=== PATIENT | female | born 1975 | race Caucasian/White ===

== ENCOUNTER 2020-06-21 19:54 | Emergency (ER) | payer OTHER ==
[~2020-06-21 19:54] MED LIST: BACTRIM DS TAB1 EACH PO; DICYCLOMINE HCL20 MG PO; METRONIDAZOLE500 MG PO; NEURONTIN300 MG PO; PHENERGAN25 M1 PO
[2020-06-21 21:24] LABS: AMPHETAMINES NEGATIVE (NEGATIVE); BARBITURATES NEGATIVE (NEGATIVE); ECSTASY (MDMA) POSITIVE (NEGATIVE); MARIJUANA (THC) POSITIVE (NEGATIVE); METHADONE NEGATIVE (NEGATIVE); OPIATES POSITIVE (NEGATIVE); OXYCODONE NEGATIVE (NEGATIVE)
[2020-06-21 21:28] LABS: BILIRUBIN NEGATIVE (NEGATIVE); BLOOD NEGATIVE Ery/uL (NEGATIVE); CLARITY HAZY (CLEAR); COLOR YELLOW (YELLOW); GLUCOSE (U) NORMAL (NORMAL); LEUKOCYTES NEGATIVE Leu/uL (NEGATIVE); NITRITE POSITIVE (NEGATIVE); PROTEIN NEGATIVE (NEGATIVE); UROBILINOGEN 0.2 mg/dL (0.2-1.0)
[2020-06-21 21:36] LABS: BACTERIA 4+; SQUAMOUS EPITHELIAL CELLS RARE
[2020-06-21 23:04] LABS: BASOPHIL 0.6 % (0-2); EOSINOPHIL 2.1 % (0-5); HCT 41.6 % (37.0-47.0); HGB 13.7 g/dl (12.5-16.0); LYMPHOCYTE 37.3 % (15-48); MCH 32.1 pg (25.0-31.0); MCHC 32.9 g/dL (32.0-36.0); MCV 97.4 fL (78.0-100.0); MONOCYTE 9.4 % (0-12); MPV 9.4 fL (6.0-9.5); NEUTROPHIL 49.8 % (41-80); NRBC 0; PLT 292 K/uL (150-400); RBC 4.27 M/uL (4.20-5.40); RDW 12.4 % (11.5-14.0); WBC 11.2 K/uL (4.0-10.5)
[2020-06-21 23:26] LABS: ALBUMIN 3.4 g/dL (3.4-5.0); BILIRUBIN - TOTAL 0.4 mg/dL (0.2-1.0); BUN/CREAT RATIO (CALC) 14.8 RATIO; CREATININE 0.88 mg/dL (0.51-0.95); GLOBULIN (CALCULATION) 3.2 g/dL; POTASSIUM 3.9 mmol/L (3.5-5.1); TOTAL PROTEIN 6.6 g/dL (6.4-8.2)
[2020-06-22] MEDS ORDERED: VIBRAMYCIN100 MG PO (01:38)
[2020-06-22] MEDS ORDERED: BENTYL10 MG PO (01:38)
[2020-06-22] MEDS ORDERED: ZOFRAN4 M1 PO (01:38)
[2020-06-24 00:09] LABS: CHLAMYDIA TRACHOMATIS, NAA Negative (Negative); NEISSERIA GONORRHOEAE, NAA Negative (Negative)
== END 2020-06-22 01:56 | disposition home or self-care (01) ==
LOC: FER 19:54
PROVIDERS: Emergency Medicine
DX: N39.0 Urinary tract infection, site not specified (principal); Z88.8 Allergy status to other drugs, medicaments and biological substances; Z88.5 Allergy status to narcotic agent
CPT/HCPCS: 36415; 80053; 80305; 81001; 85025; 87076; 87088; 87186; 87491; 87591; J0696; J1885; J2405; Q9967

== ENCOUNTER 2020-10-11 00:02 | Emergency (ER) | payer MEDICAID ==
[~2020-10-11 00:02] MED LIST changes: +BENTYL10 MG PO; +VIBRAMYCIN100 MG PO; +ZOFRAN4 M1 PO
[2020-10-11 01:05] LABS: BASOPHIL 0.7 % (0-2); EOSINOPHIL 1.3 % (0-5); HGB 13.4 g/dl (12.5-16.0); LYMPHOCYTE 33.5 % (15-48); MCHC 33.5 g/dL (32.0-36.0); MCV 95.5 fL (78.0-100.0); MONOCYTE 8.7 % (0-12); MPV 8.6 fL (6.0-9.5); NEUTROPHIL 55.2 % (41-80); NRBC 0; PLT 329 K/uL (150-400); RBC 4.19 M/uL (4.20-5.40); RDW 12.6 % (11.5-14.0); WBC 12.1 K/uL (4.0-10.5)
[2020-10-11 01:09] LABS: INR 1.04 (0.9-1.2); PROTHROMBIN TIME 12.9 SECONDS (11.4-13.6)
[2020-10-11 01:10] LABS: PTT 33.7 SECONDS (22.2-34.7)
[2020-10-11 01:11] LABS: D-DIMER 0.41 ug/mLFEU (0.00-0.41)
[2020-10-11 01:31] LABS: BILIRUBIN NEGATIVE (NEGATIVE); BLOOD NEGATIVE Ery/uL (NEGATIVE); CLARITY CLEAR (CLEAR); COLOR YELLOW (YELLOW); GLUCOSE (U) NORMAL (NORMAL); LEUKOCYTES NEGATIVE Leu/uL (NEGATIVE); NITRITE NEGATIVE (NEGATIVE); PROTEIN NEGATIVE (NEGATIVE); UROBILINOGEN 0.2 mg/dL (0.2-1.0)
[2020-10-11 01:35] LABS: BARBITURATES NEGATIVE (NEGATIVE); ECSTASY (MDMA) NEGATIVE (NEGATIVE); MARIJUANA (THC) POSITIVE (NEGATIVE); METHADONE NEGATIVE (NEGATIVE); OPIATES NEGATIVE (NEGATIVE)
[2020-10-11 01:36] LABS: AMPHETAMINES POSITIVE (NEGATIVE); OXYCODONE NEGATIVE (NEGATIVE)
[2020-10-11 01:37] LABS: LACTIC ACID 1.4 mmol/L (0.4-1.9)
[2020-10-11 01:38] LABS: ALBUMIN 3.8 g/dL (3.4-5.0); ALKALINE PHOSHATASE 62 U/L (46-116); ALT 22 U/L (14-59); AMYLASE 47 U/L (25-115); AST 15 U/L (15-37); BILIRUBIN - TOTAL 0.2 mg/dL (0.2-1.0); BUN 8 mg/dL (7-18); C-REACTIVE PROTEIN < 0.20 mg/dL (<=0.90); CHLORIDE 103 mmol/L (98-107); CO2 (BICARBONATE) 27 mmol/L (21-32); CREATININE 0.79 mg/dL (0.51-0.95); GLOBULIN (CALCULATION) 3.3 g/dL; GLUCOSE 98 mg/dL (74-106); LIPASE 149 U/L (73-393); POTASSIUM 3.9 mmol/L (3.5-5.1); TOTAL PROTEIN 7.1 g/dL (6.4-8.2)
[2020-10-11 01:39] LABS: FT4 (FREE T4) 0.77 ng/dL (0.76-1.46)
== END 2020-10-11 04:13 | disposition home or self-care (01) ==
LOC: FER 00:02
PROVIDERS: Emergency Medicine Emergency Medical Services
DX: R07.89 Other chest pain (principal); M79.622 Pain in left upper arm; S80.11XA Contusion of right lower leg, initial encounter; R10.32 Left lower quadrant pain; F17.210 Nicotine dependence, cigarettes, uncomplicated; Z88.8 Allergy status to other drugs, medicaments and biological substances; Z86.73 Personal history of transient ischemic attack (TIA), and cerebral infarction without residual deficits; Z86.14 Personal history of Methicillin resistant Staphylococcus aureus infection; Z87.820 Personal history of traumatic brain injury; X58.XXXA Exposure to other specified factors, initial encounter
CPT/HCPCS: 36415; 71045; 71275; 80053; 80305; 81003; 82150; 82270; 83605; 83690; 84145; 84439; 84443; 84484; 85025; 85379; 85610; 85730; 86140; 87040; 87088; 93005; G0480; J1200; J1885; J2270; J2405; J7030; Q9967

== ENCOUNTER 2020-10-21 00:25 | Emergency (ER) | payer MEDICAID ==
[2020-10-21 01:27] LABS: BASOPHIL 0.5 % (0-2); EOSINOPHIL 1.2 % (0-5); HCT 41.7 % (37.0-47.0); HGB 13.9 g/dl (12.5-16.0); LYMPHOCYTE 33.9 % (15-48); MCH 31.4 pg (25.0-31.0); MCHC 33.3 g/dL (32.0-36.0); MCV 94.3 fL (78.0-100.0); MONOCYTE 9.7 % (0-12); MPV 8.3 fL (6.0-9.5); NEUTROPHIL 54.3 % (41-80); NRBC 0; PLT 334 K/uL (150-400); RBC 4.42 M/uL (4.20-5.40); RDW 12.5 % (11.5-14.0); WBC 11.2 K/uL (4.0-10.5)
[2020-10-21 01:40] LABS: ALBUMIN 3.9 g/dL (3.4-5.0); ALKALINE PHOSHATASE 59 U/L (46-116); ALT <6 U/L (14-59); AST 18 U/L (15-37); BILIRUBIN - TOTAL 0.9 mg/dL (0.2-1.0); BUN 7 mg/dL (7-18); BUN/CREAT RATIO (CALC) 9.3 RATIO; CHLORIDE 101 mmol/L (98-107); CO2 (BICARBONATE) 26 mmol/L (21-32); CREATININE 0.75 mg/dL (0.51-0.95); GLOBULIN (CALCULATION) 3.3 g/dL; GLUCOSE 100 mg/dL (74-106); POTASSIUM 3.9 mmol/L (3.5-5.1); TOTAL PROTEIN 7.2 g/dL (6.4-8.2)
[2020-10-21] MEDS ORDERED: PHENERGAN25 M1 PO (01:58)
== END 2020-10-21 02:07 | disposition home or self-care (01) ==
LOC: FER 00:25
PROVIDERS: Emergency Medicine
DX: F19.10 Other psychoactive substance abuse, uncomplicated (principal); F17.210 Nicotine dependence, cigarettes, uncomplicated
CPT/HCPCS: 36415; 80053; 85025; 99283; J3410

== ENCOUNTER 2020-11-05 14:34 | Emergency (ER) | payer OTHER ==
[2020-11-05 16:33] LABS: BASOPHIL 0.8 % (0-2); EOSINOPHIL 1.6 % (0-5); HCT 39.2 % (37.0-47.0); HGB 13.5 g/dl (12.5-16.0); LYMPHOCYTE 41.8 % (15-48); MCH 32.5 pg (25.0-31.0); MCHC 34.4 g/dL (32.0-36.0); MCV 94.5 fL (78.0-100.0); MONOCYTE 10.9 % (0-12); MPV 8.6 fL (6.0-9.5); NEUTROPHIL 44.4 % (41-80); NRBC 0; PLT 311 K/uL (150-400); RBC 4.15 M/uL (4.20-5.40); RDW 12.7 % (11.5-14.0)
[2020-11-05 16:49] LABS: ALBUMIN 3.8 g/dL (3.4-5.0); BILIRUBIN - TOTAL 0.3 mg/dL (0.2-1.0); BUN/CREAT RATIO (CALC) 11.4 RATIO; CREATININE 0.79 mg/dL (0.51-0.95); GLOBULIN (CALCULATION) 3.1 g/dL; POTASSIUM 3.7 mmol/L (3.5-5.1); TOTAL PROTEIN 6.9 g/dL (6.4-8.2)
[2020-11-05] MEDS ORDERED: PROMETHEGA12.5 MG/SU PR (18:29)
[2020-11-05] MEDS ORDERED: NORCO 5-325 TA1 EACH PO (18:34)
[2020-11-05 18:35] LABS: BILIRUBIN NEGATIVE (NEGATIVE); BLOOD NEGATIVE Ery/uL (NEGATIVE); CLARITY CLEAR (CLEAR); COLOR YELLOW (YELLOW); GLUCOSE (U) NORMAL (NORMAL); LEUKOCYTES NEGATIVE Leu/uL (NEGATIVE); NITRITE NEGATIVE (NEGATIVE); PROTEIN NEGATIVE (NEGATIVE); UROBILINOGEN 0.2 mg/dL (0.2-1.0); pH 6.5 (5.0-9.0)
[2020-11-05] MEDS ORDERED: PERCOCET 7.5/321 TAB PO (18:36)
--- NOTE | 2020-11-06 15:36 | NUR ---
PT WAS GIVEN A SCRIPT AT D/C FOR PHENERGAN SUPPOSITORY. MED NOT IN STOCK AT THIS TIME. WILL HAVE TO BE ORDERED. PO SCRIPT CALLED IN FOR PATIENT. PHENERGAN 25 MG PO,1 TAB EVERY 4-6 HOURS PRN N/V. #16 PER . CALLED INTO [facility] IN [place].
== END 2020-11-05 19:02 | disposition home or self-care (01) ==
LOC: FER 14:34
PROVIDERS: Physician Assistant
DX: K85.90 Acute pancreatitis without necrosis or infection, unspecified (principal); J44.9 Chronic obstructive pulmonary disease, unspecified; F17.200 Nicotine dependence, unspecified, uncomplicated; Z88.5 Allergy status to narcotic agent; Z88.8 Allergy status to other drugs, medicaments and biological substances; Z88.2 Allergy status to sulfonamides
CPT/HCPCS: 36415; 80053; 81003; 83690; 85025; J1885; J2270; J2405; J7030; Q9967

== ENCOUNTER 2020-11-10 14:00 | Emergency (ER) | payer OTHER ==
[~2020-11-10 14:00] MED LIST changes: +NORCO 5-325 TA1 EACH PO; +PERCOCET 7.5/321 TAB PO; +PROMETHEGA12.5 MG/SU PR
[2020-11-10 15:52] LABS: BASOPHIL 0.7 % (0-2); EOSINOPHIL 1.9 % (0-5); HCT 42.9 % (37.0-47.0); HGB 13.9 g/dl (12.5-16.0); LYMPHOCYTE 37.5 % (15-48); MCH 31.5 pg (25.0-31.0); MCHC 32.4 g/dL (32.0-36.0); MCV 97.3 fL (78.0-100.0); MONOCYTE 9.2 % (0-12); MPV 8.7 fL (6.0-9.5); NEUTROPHIL 50.1 % (41-80); NRBC 0; PLT 319 K/uL (150-400); RBC 4.41 M/uL (4.20-5.40); RDW 12.6 % (11.5-14.0); WBC 10.7 K/uL (4.0-10.5)
[2020-11-10 16:40] LABS: ALBUMIN 3.8 g/dL (3.4-5.0); BILIRUBIN - TOTAL 0.2 mg/dL (0.2-1.0); BUN/CREAT RATIO (CALC) 7.4 RATIO; CREATININE 0.81 mg/dL (0.51-0.95); GLOBULIN (CALCULATION) 3.4 g/dL; POTASSIUM 4.2 mmol/L (3.5-5.1); TOTAL PROTEIN 7.2 g/dL (6.4-8.2)
[2020-11-10] MEDS ORDERED: PHENERGAN12.5 M1 PO (17:24)
== END 2020-11-10 17:29 | disposition home or self-care (01) ==
LOC: FER 14:00
PROVIDERS: Emergency Medicine
DX: K29.70 Gastritis, unspecified, without bleeding (principal); J44.9 Chronic obstructive pulmonary disease, unspecified; F17.210 Nicotine dependence, cigarettes, uncomplicated; Z87.820 Personal history of traumatic brain injury; Z88.1 Allergy status to other antibiotic agents; Z88.5 Allergy status to narcotic agent; Z88.8 Allergy status to other drugs, medicaments and biological substances
CPT/HCPCS: 36415; 80053; 83690; 85025; 99284

== ENCOUNTER 2020-12-16 08:24 | Emergency (ER) | payer OTHER ==
[~2020-12-16 08:24] MED LIST changes: +PHENERGAN12.5 M1 PO
== END 2020-12-16 12:40 | disposition home or self-care (01) ==
LOC: FER 08:24
DX: U07.1 COVID-19 (principal); J43.9 Emphysema, unspecified; F17.210 Nicotine dependence, cigarettes, uncomplicated; F19.10 Other psychoactive substance abuse, uncomplicated; Z88.8 Allergy status to other drugs, medicaments and biological substances; Z88.5 Allergy status to narcotic agent; Z88.6 Allergy status to analgesic agent
CPT/HCPCS: M0243; Q0244

== ENCOUNTER 2021-02-09 13:09 | Emergency (ER) | payer OTHER ==
[2021-02-09 15:14] LABS: BILIRUBIN NEGATIVE (NEGATIVE); BLOOD NEGATIVE Ery/uL (NEGATIVE); CLARITY CLEAR (CLEAR); COLOR YELLOW (YELLOW); GLUCOSE (U) NORMAL (NORMAL); LEUKOCYTES NEGATIVE Leu/uL (NEGATIVE); NITRITE NEGATIVE (NEGATIVE); PROTEIN NEGATIVE (NEGATIVE); SPECIFIC GRAVITY 1.015 (1.001-1.030); UROBILINOGEN 0.2 mg/dL (0.2-1.0)
[2021-02-09 16:13] LABS: BASOPHIL 0.9 % (0-2); EOSINOPHIL 2.1 % (0-5); HCT 44.1 % (37.0-47.0); HGB 14.1 g/dl (12.5-16.0); LYMPHOCYTE 33.2 % (15-48); MCH 31.3 pg (25.0-31.0); MCV 97.8 fL (78.0-100.0); MONOCYTE 9.4 % (0-12); MPV 8.6 fL (6.0-9.5); NEUTROPHIL 53.5 % (41-80); NRBC 0; PLT 388 K/uL (150-400); RBC 4.51 M/uL (4.20-5.40); RDW 13.5 % (11.5-14.0); WBC 11.6 K/uL (4.0-10.5)
[2021-02-09 16:33] LABS: ALBUMIN 3.9 g/dL (3.4-5.0); BILIRUBIN - TOTAL 0.4 mg/dL (0.2-1.0); CREATININE 0.82 mg/dL (0.51-0.95); POTASSIUM 4.9 mmol/L (3.5-5.1); TOTAL PROTEIN 6.9 g/dL (6.4-8.2)
[2021-02-09] MEDS ORDERED: MIRALAX17 GM PO (18:08)
== END 2021-02-09 18:24 | disposition home or self-care (01) ==
LOC: FER 13:09
PROVIDERS: Internal Medicine; Nurse Practitioner Family
DX: K59.00 Constipation, unspecified (principal); J43.9 Emphysema, unspecified; Z86.73 Personal history of transient ischemic attack (TIA), and cerebral infarction without residual deficits; Z86.16 Personal history of COVID-19; Z88.5 Allergy status to narcotic agent; Z88.8 Allergy status to other drugs, medicaments and biological substances; Z88.6 Allergy status to analgesic agent; Z88.2 Allergy status to sulfonamides
CPT/HCPCS: 36415; 80053; 81003; 85025; J2405; J7030; Q9967